=== PATIENT | male | born 1945 | race Caucasian/White ===

== ENCOUNTER 2016-09-15 09:30 | Outpatient (CLI) ==
[2016-05-14 14:57] VITALS: BMI 33.0
--- NOTE | 2016-09-15 10:49 | US ---
EXAM: Bilateral lower extremity venous Doppler History: Bilateral lower extremity swelling. Technique: Multiple sonographic images through the bilateral lower extremities were obtained. Color duplex Doppler was used to interrogate vascular flow. Findings: The bilateral anterior tibial veins were not seen. The rest of visualized bilateral venou s structures demonstrate spontaneous flow with normal compression and normal augmentation. 7 cm x 2 cm x 2 cm complex or complicated collection of fluid within the right popliteal fossa. Bilateral l ower extremity subcutaneous edema. Impression: 1. No sonographic evidence for deep venous thrombosis within the visualized veins. 2. Right Miranda's cyst. 3. Bilateral lower extremity subcutaneous edema.
== END 2016-09-15 09:31 | disposition home or self-care (01) ==
LOC: RAD 09:30
PROVIDERS: ATTEND Internal Medicine
DX: M79.89 Other specified soft tissue disorders (principal); M79.606 Pain in leg, unspecified

== ENCOUNTER 2019-03-06 07:10 | Outpatient (CLI) ==
[2016-05-14 14:57] VITALS: BMI 33.0
== END 2019-03-06 07:29 | disposition short-term general hospital (02) ==
LOC: AMBL 07:10
PROVIDERS: ATTEND Internal Medicine
DX: M54.9 Dorsalgia, unspecified (principal); R06.02 Shortness of breath; J40 Bronchitis, not specified as acute or chronic; Z98.890 Other specified postprocedural states

== ENCOUNTER 2019-03-09 15:32 | Outpatient (CLI) | payer OTHER ==
[2016-05-14 14:57] VITALS: BMI 33.0
== END 2019-03-09 15:33 | disposition home or self-care (01) ==
LOC: NONPT 15:32
PROVIDERS: ATTEND Internal Medicine
DX: N17.9 Acute kidney failure, unspecified (principal); E87.70 Fluid overload, unspecified; E78.5 Hyperlipidemia, unspecified; R78.81 Bacteremia
CPT/HCPCS: 80048

== ENCOUNTER 2019-03-12 12:12 | Outpatient (CLI) | payer OTHER ==
[2016-05-14 14:57] VITALS: BMI 33.0
== END 2019-03-12 12:13 | disposition home or self-care (01) ==
LOC: NONPT 12:12
PROVIDERS: ATTEND Internal Medicine
DX: N17.9 Acute kidney failure, unspecified (principal); R30.0 Dysuria
CPT/HCPCS: 81001

== ENCOUNTER 2019-03-15 13:38 | Outpatient (CLI) | payer OTHER ==
[2016-05-14 14:57] VITALS: BMI 33.0
== END 2019-03-15 13:39 | disposition home or self-care (01) ==
LOC: NONPT 13:38
PROVIDERS: ATTEND Internal Medicine
DX: N17.9 Acute kidney failure, unspecified (principal)
CPT/HCPCS: 80053; 85025

== ENCOUNTER 2024-08-04 16:20 | Observation (INO) ==
[2024-08-04 16:42] LABS: BASOPHILS # (AUTO) 0.1 K/uL (0-0.2); BASOPHILS % (AUTO) 0.7 % (0.0-3.0); EOSINOPHILS # (AUTO) 0.2 K/ul (0.0-0.7); EOSINOPHILS % (AUTO) 2.4 % (0.0-7.0); HEMATOCRIT 42.9 % (42.0-52.0); IMMATURE GRANULOCYTE % (AUTO) 0.2 % (0.0-5.0); LYMPHOCYTES # (AUTO) 1.7 K/uL (0.60-3.4); LYMPHOCYTES % (AUTO) 19.9 (10.0-50.0); MEAN CORPUSCULAR HEMOGLOBIN 29.5 pg (27.0-31.0); MEAN CORPUSCULAR HGB CONC 32.6 (31.8-35.4); MEAN CORPUSCULAR VOLUME 90.5 fl (80.0-94.0); MONOCYTES # (AUTO) 0.7 K/uL (0.4-2.0); MONOCYTES % (AUTO) 8.4 (0-10); NEUTROPHILS # (AUTO) 5.8 K/ul (2.0-6.9); NEUTROPHILS % (AUTO) 68.4 % (42.2-75.2); PLATELET COUNT 245 10^3/uL (140-440); RDW COEFFICIENT OF VARIATION 12.6 % (11.6-14.8); RED BLOOD COUNT 4.74 10^6/ul (4.70-6.10); WHITE BLOOD COUNT 8.46 K/ul (4.2-10.2)
[2024-08-04 16:53] LABS: ALBUMIN 4.56 g/dL (3.5-5.0); ALKALINE PHOSPHATASE 92.6 U/L (56-119); ASPARTATE AMINO TRANSFERASE 25.3 U/L (17-59); BILIRUBIN,TOTAL 1.01 mg/dL (0.2-1.3); BLOOD UREA NITROGEN 18.7 mg/dL (9-20); CALCIUM 9.27 mg/dL (8.4-10.2); CARBON DIOXIDE 25.2 mmol/L (22-30.0); CHLORIDE 102.5 mmol/L (98-107); CREATININE 1.25 mg/dL (0.60-1.10); GLUCOSE 177.8 mg/dL (74-106); LIPASE 61.5 U/L (23-300); POTASSIUM 4.21 mmol/L (3.5-5.1); SODIUM 135.5 mmol/L (134.5-145); TOTAL PROTEIN 7.75 g/dL (6.3-8.2)
[2024-08-04] MEDS: ZOFRAN SDV IVP STA (16:53)
[2024-08-04] MEDS: MORPHINE 2 MG/ML SYRINGE IVP ONE (16:54)
[2024-08-04] MEDS: MYLANTA XTRA STRENGTH 30ML CUP PO ONE (17:15)
[2024-08-04] MEDS: LIDOCAINE VISCOUS 2% 15 ML UD MUCOUSMEMB STA (17:15)
--- NOTE | 2024-08-04 17:16 | CT ---
EXAM: CT ABDOMEN AND PELVIS HISTORY: Right upper quadrant pain TECHNIQUE: CT abdomen and pelvis without intravenous contrast. Images were reconstructed using 3 mm section thickness. Reformations were prepared. COMPARISON: 05/02/2019 FINDINGS: Diagnostic limitations exist without including intravenous contrast enhanced images. Live r is unremarkable. There are one or two punctate gallstones within an otherwise unremarkable gallbla dder. No biliary dilatation or pancreatic pathology. Spleen and adrenal glands are normal. There i s mild bilateral perinephric fat stranding similar to that seen on the prior 2019 study. There is no nephrolithiasis, ureteral obstruction or hydronephrosis. There is mild to moderate atherosclerotic disease. Stomach is within normal limits. Normal appendix. Moderate sigmoid diverticulosis without convincing evidence of diverticulitis. Normal bowel gas pattern. There is a left-sided 15 mm appar ent urinary bladder diverticulum not seen previously. The bladder was otherwise unremarkable. No pr ostate enlargement. There is no ascites or free air. Small to moderate bilateral inguinal hernias w ithout hernia complication suggested. Postop changes of the ventral abdominal wall noted. The bones demonstrate moderate to severe degenerative changes of the spine. Lung bases reveal fibrotic change s. - - - - - IMPRESSION: 1. There are one or two punctate gallstones within an otherwise unremarkable gallbladder. No biliar y dilatation or pancreatic pathology. 2. There is mild bilateral perinephric fat stranding similar to that seen on the prior 2019 study. There is no nephrolithiasis, ureteral obstruction or hydronephrosis. 3. There is mild to moderate atherosclerotic disease. 4. Normal appendix. Moderate sigmoid diverticulosis. Normal bowel gas pattern. 5. 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 6. There is no ascites or free air. 7. Small to moderate bilateral inguinal hernias without hernia complication suggested. - - - - - All CT scans are performed using dose optimization techniques as appropriate to the performed exam an d include at least one of the following: Automated exposure control, adjustment of the mA and/or kV according t o size, and the use of iterative reconstruction technique.
[2024-08-04] MEDS: PROTONIX IVP ONE (17:37)
[2024-08-04] MEDS: TORADOL IVP STA (17:38)
[2024-08-04] MEDS: VISIPAQUE 320 MG/ML 100ML IVP ONE (19:07)
--- NOTE | 2024-08-04 19:20 | ED.PDOC ---
General ED Provider: Dr. DEIDRE COVARRUBIAS MD Chief Complaint: Chest Pain Stated Complaint: 79 years old male past medical history of hypertension, dyslipidemia coming to emergency room for right sided lower chest pain and right upper quadrant pain. Patient reports that the pain started when he woke up this morning has gotten progressively worse throughout the day pain is associated with burping. Patient feeling nauseous but no vomiting. Reports the pain is aggravated by taking a deep breath rating the pain as 20/10. He denies any shortness of breath, fever, diarrhea or constipation no changes in the urine. Time Seen by Provider: 08/04/24 16:25 Information Source: Patient Primary Care Provider: NURIA MON MD Nursing and Triage Documentation Reviewed and Agree: Yes What is Opioid Naive?: *Opioid Naive implies the patient is not already taking opioids or not chronically receiving opioids on a daily basis. *PRN dosing is not "usually" associated with tolerance. *Patients are at higher risk of over-sedation and aspiration. What is Opioid Tolerant?: *Opioid Tolerance implies less than the expected response to an opioid. *Acquired tolerance is defined by the patient taking 60mg of oral morphine daily (or equianalgesic dose of another opioid) for 1 week or more. *Often associated with chronic pain. *May take more than usual dose to achieve desired pain control. 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 - Torres's palsy (ICD-10) History of osteomyelitis post laminectomy Z87.39 - Personal history of other diseases of the musculoskeletal system and connective tissue (ICD-10) Family History Mother CHF (congestive heart failure) FATHER Heart attack Social History Smoking and tobacco status: Former smoker Tobacco: How many years used: 40 Alcohol intake: never Substance use type: does not use Special rosaura needs: No Agree to transfusion: Yes Adopted: No Caregiver/support person: No Foster care: No Household members: spouse Housing: house Marital status: D Lives independently: Yes Daycare: no daycare Number of children: 2 service: Yes senior living: No Current occupational status: retired History of recent travel: No Do you think of yourself as: straight/heterosexual Current gender identity: male Seatbelt use: always Drives intoxicated or rides with intoxicated driver's license examiner: No Water heater temperature set < 120 degrees: Yes Working smoke detector in home: Yes Fire extinguisher in home: No Carbon monoxide detector in home: No Surgical History History of colon resection Z90.49 - Acquired absence of other specified parts of digestive tract (ICD- 10) History of laminectomy l1l3 dr pollard Z98.890 - Other specified postprocedural states (ICD-10) Physical Exam Physical Exam Appearance: Reports Well-nourished and Obese Pain Distress: Moderate Respiratory: Reports Airway patent, Breath sounds clear and Breath sounds equal Cardiovascular: Reports RRR, Pulses normal and No murmur GI/: Reports Soft, No masses, Bowel sounds normal, No Organomegaly and Tender (RUQ, positive Bajwa's sign) Musculoskeletal: Reports Normal strength and ROM intact Skin: Reports Warm and Normal color Neurological: Reports Sensation intact and Motor intact Psychiatric: Reports Affect appropriate Interpretation EKG Interpretation EKG Interpretation By: ED Physician Time of EKG #1: 16:25 Rate: Normal Rhythm: Sinus Ectopy: None [place]: NL ST Segment: Normal Interpretation: prolonged NV interval, no sings of acute ischemia EKG Interpretation By: ED Physician Time of EKG #2: 17:26 Rate: Swapnil Rhythm: Sinus Ectopy: None [place]: NL ST Segment: Normal EKG Interpretation: sinus bradycardia, no sings of acute ischemia Course Course 08/04/24 16:30 08/04/24 16:30 Orders, Labs, Meds: Lab Review 08/04/24 08/04/24 08/04/24 16:30 16:35 17:30 WBC 8.46 RBC 4.74 Hgb 14.0 Hct 42.9 MCV 90.5 MCH 29.5 MCHC 32.6 RDW Coeff of Mehdi 12.6 Plt Count 245 Immature Gran % (Auto) 0.2 Neut % (Auto) 68.4 Lymph % (Auto) 19.9 [place] % (Auto) 8.4 Eos % (Auto) 2.4 Baso % (Auto) 0.7 Neut # (Auto) 5.8 Lymph # (Auto) 1.7 [place] # (Auto) 0.7 Eos # (Auto) 0.2 Baso # (Auto) 0.1 Immature Gran # (Auto) 0.0 Sodium 135.5 Potassium 4.21 Chloride 102.5 Carbon Dioxide 25.2 Anion Gap 12.01 BUN 18.7 Creatinine 1.25 H Estimated GFR (MDRD) 56.00 BUN/Creatinine Ratio 14.96 Glucose 177.8 H Lactic Acid 1.41 Calcium 9.27 Total Bilirubin 1.01 AST 25.3 ALT 21.0 Alkaline Phosphatase 92.6 Troponin I < 0.012 Total Protein 7.75 Albumin 4.56 Globulin 3.19 Albumin/Globulin Ratio 1.42 Lipase 61.5 D-Dimer 721.97 H Orders Category Date Time Status OBSERVATION [[facility] PAT[facility]BS[facility]] [facility] 20:34 Ordered (MONITORED BED) EKG-(ED ONLY) Stat CARDIO 08/04/24 16:30 Completed EKG-(ED ONLY) Stat CARDIO 08/04/24 17:32 Completed NPO REMINDER: IMAGING ONCE CARE 08/04/24 18:53 Completed TELEMETRY MONITORING TELE CARE 08/04/24 20:34 Ordered CBC W/ AUTO DIFF Stat LAB 08/04/24 16:30 Completed CMP [COMPREHENSIVE METABOLIC PANEL] Stat LAB 08/04/24 16:30 Completed D-DIMER Stat LAB 08/04/24 16:35 Completed LACTIC ACID Stat LAB 08/04/24 17:30 Completed LIPASE Stat LAB 08/04/24 16:30 Completed TROPONIN I Stat LAB 08/04/24 16:30 Completed TROPONIN I Stat LAB 08/04/24 20:28 Ordered URINALYSIS C & S IF INDICATED Stat LAB 08/04/24 17:25 Uncollected Iodixanol [Visipaque 320 mg/ml 100Ml] Meds 08/04/24 19:06 Discontinued 100 ml IVP ONCE ONE Ketorolac Tromethamine [Toradol] Meds 08/04/24 17:33 Discontinued 30 mg IVP ONCE STA Lidocaine HCl [Lidocaine Viscous 2% 15 ml Ud] Meds 08/04/24 17:09 Discontinued 15 ml MUCOUSMEMB ONCE STA Mag Hydrox/Aluminum Hyd/Simeth [Mylanta Xtra Strength Meds 08/04/24 17:09 Discontinued 30Ml Cup] 15 ml PO ONCE ONE Morphine Sulfate [Morphine 2 mg/ml Syringe] Meds 08/04/24 16:29 Discontinued 2 mg IVP ONCE ONE Ondansetron HCl/Pf [Zofran Sdv] Meds 08/04/24 16:49 Discontinued 4 mg IVP ONCE STA Pantoprazole Sodium [Protonix] Meds 08/04/24 17:27 Discontinued [address] ONCE ONE [address] ABDOMEN/PELVIS WO CONTRAST Stat RADS 08/04/24 16:30 Completed CTA CHEST PE PROTOCOL Stat RADS 08/04/24 18:53 Completed Medications Discontinued Medications Generic Name Dose Route Start Last Admin Trade Name Freq PRN Reason Stop Dose Admin Iodixanol 100 ml 08/04/24 19:06 08/04/24 19:07 Iodixanol 320 Mg/Ml 100ml IVP 08/04/24 19:07 100 ml ONCE ONE Administration Ketorolac Tromethamine 30 mg 08/04/24 17:33 08/04/24 17:38 Ketorolac Tromethamine 30 Mg/Ml Vial IVP 08/04/24 17:34 30 mg ONCE STA Administration Lidocaine HCl 15 ml 08/04/24 17:09 08/04/24 17:15 Lidocaine Viscous 15 Ml Cup MUCOUSMEMB 08/04/24 17:10 15 ml ONCE STA Administration Morphine Sulfate 2 mg 08/04/24 16:29 08/04/24 16:54 Morphine Sulfate 2 Mg/Ml Syringe IVP 08/04/24 16:30 2 mg ONCE ONE Administration Ondansetron HCl 4 mg 08/04/24 16:49 08/04/24 16:53 Ondansetron Hcl/Pf 4 Mg/2 Ml Sdv IVP 08/04/24 16:50 4 mg ONCE STA Administration Pantoprazole Sodium 40 mg 08/04/24 17:27 08/04/24 17:37 Pantoprazole Sodium 40 Mg Vial IVP 08/04/24 17:28 40 mg ONCE ONE Administration Vital Signs: Temp Pulse Resp BP Pulse Ox 08/04/24 16:26 97.8 F 78 20 172/85 H 97 Patient with right upper quadrant pain received morphine 2 mg and GI cocktail then Toradol 30 mg still his pain is uncontrolled CBC no leukocytosis hemoglobin is normal creatinine 1.25 lactic acid normal LFTs within normal limits lipase also normal D-dimer 721. CT scan of the abdomen and pelvis showed 2 gallstones otherwise unremarkable gallbladder no biliary dilation or pancreatic pathology as per radiology interpretation there is also mild bilateral perinephric fat stranding no kidney stones or obstruction or hydronephrosis. Due to right upper quadrant tenderness and positive Bajwa sign on physical exam I am not able to rule out acute cholecystitis CTA chest PE protocol did not show any signs of PE or pneumonia as per radiology interpretation. Patient will need right upper quadrant ultrasound to rule out acute cholecystitis. CT results came back negative for PE I called hospitalist on-call Edgar and she accepted the patient to be admitted under observation for ultrasound tomorrow. Discharge Plan Discharge Patient Disposition: PLACED OBSERVATION Discharge Problem: Biliary colic Prescriptions: No Action carvedilol 12.5 mg tablet 12.5 mg PO 2XD Qty: 180 1RF pravastatin 40 mg tablet 40 mg PO DAILY Qty: 90 1RF aspirin 81 MG tablet,delayed release (DR/EC) 81 mg PO DAILYWM ferrous sulfate 325 mg (65 mg iron) tablet 325 mg PO QDAY losartan-hydrochlorothiazide 100-25 mg tablet 1 tab PO QDAY Did you review [place] [employer] for ALL controlled substances?: Not Applicable ED Provider: DEIDRE COVARRUBIAS Condition: Good
--- NOTE | 2024-08-04 20:15 | CT ---
EXAM: CT ANGIOGRAPHY CHEST (PE PROTOCOL) HISTORY: Elevated D-dimer TECHNIQUE: CTA chest with intravenous contrast. PE protocol. Multiplanar images were provided with MIP images and 3-D reconstructions. COMPARISON: 04/04/2024 FINDINGS: No pulmonary arterial thromboembolism. There is moderate thoracic aortic atherosclerotic disease without aneurysm. Coronary artery calcifications are present. Heart size is borderline enl arged. No pericardial effusion. Mildly prominent mediastinal and hilar lymph nodes are nonspecific and similar to that previously seen. Lung bases again demonstrate interstitial thickening and mild c onsolidations especially on the left although less than previously seen. This could represent scarri ng and atelectasis. Cannot exclude mild pneumonia. There is a stable pleural based noncalcified nod ule in the posterior right lung base measuring 9 mm, axial image 104. A few calcified granulomas are also noted. There is no pneumothorax, vascular congestion for pleural fluid. There is diffuse osse ous sclerosis somewhat similar to that previously seen. Bridging osteophytic spurs of the spine are seen throughout. Incidental note of a tiny gallstone within an otherwise unremarkable gallbladder. - - - - - IMPRESSION: 1. No PE. 2. There is moderate thoracic aortic atherosclerotic disease without aneurysm. Coronary artery calc ifications are present. 3. Heart size is borderline enlarged. 4. Mildly prominent mediastinal and hilar lymph nodes are nonspecific and similar to that previously seen. 5. Lung bases again demonstrate interstitial thickening and mild consolidations especially on the le ft although less than previously seen. This could represent scarring and atelectasis. Cannot exclud e mild pneumonia. 6. There is a stable pleural based noncalcified nodule in the posterior right lung base measuring 9 mm, axial image 104. 7. There is diffuse osseous sclerosis somewhat similar to that previously seen. - - - - - All CT scans are performed using dose optimization techniques as appropriate to the performed exam an d include at least one of the following: Automated exposure control, adjustment of the mA and/or kV according t o size, and the use of iterative reconstruction technique.
[2024-08-04] MEDS ORDERED: TYLENOL PO PRN (20:51)
[2024-08-04] MEDS ORDERED: REGLAN IVP PRN (20:52)
[2024-08-04] MEDS ORDERED: ZOFRAN SDV IVP PRN (20:52)
[2024-08-04] MEDS ORDERED: TORADOL IVP PRN (20:52)
[2024-08-04 21:44] LABS: SARS COV-2 RNA RAPID NAAT NEGATIVE (NEGATIVE)
[2024-08-04 22:33] VITALS: BMI 33.3
[2024-08-05 02:37] LABS: BILIRUBIN,URINE Negative (NEGATIVE); CLARITY,URINE Clear (CLEAR); COLOR,URINE Dark (YELLOW); GLUCOSE, URINE (UA) Negative (NEGATIVE); KETONES,URINE Negative (NEGATIVE); LEUKOCYTE ESTERASE ,URINE Negative (NEGATIVE); NITRITE,URINE Positive (NEGATIVE); PROTEIN,URINE 1+ (NEGATIVE); URINE, BLOOD Trace-intact (NEGATIVE); UROBILINOGEN,URINE 0.2 (0.2)
[2024-08-05 02:45] LABS: BACTERIA,URINE 2+ (NOT PRESENT); RENAL EPITHELIAL CELLS,URINE 0-2 (NOT PRESENT)
[2024-08-05 02:46] LABS: MUCUS,URINE TRACE (NOT PRESENT)
[2024-08-05 05:22] LABS: BASOPHILS % (AUTO) 0.3 % (0.0-3.0); EOSINOPHILS % (AUTO) 0.1 % (0.0-7.0); HEMATOCRIT 39.8 % (42.0-52.0); HEMOGLOBIN 13.1 g/dl (14.0-18.0); IMMATURE GRANULOCYTE % (AUTO) 0.2 % (0.0-5.0); LYMPHOCYTES # (AUTO) 1.4 K/uL (0.60-3.4); LYMPHOCYTES % (AUTO) 14.1 (10.0-50.0); MEAN CORPUSCULAR HEMOGLOBIN 29.8 pg (27.0-31.0); MEAN CORPUSCULAR HGB CONC 32.9 (31.8-35.4); MEAN CORPUSCULAR VOLUME 90.5 fl (80.0-94.0); MONOCYTES # (AUTO) 0.9 K/uL (0.4-2.0); NEUTROPHILS # (AUTO) 7.3 K/ul (2.0-6.9); NEUTROPHILS % (AUTO) 76.3 % (42.2-75.2); PLATELET COUNT 221 10^3/uL (140-440); RDW COEFFICIENT OF VARIATION 12.6 % (11.6-14.8); WHITE BLOOD COUNT 9.62 K/ul (4.2-10.2)
[2024-08-05 05:34] LABS: ALANINE AMINOTRANSFERASE 18.3 U/L (0-50); ALBUMIN 4.02 g/dL (3.5-5.0); ALKALINE PHOSPHATASE 84.8 U/L (56-119); ASPARTATE AMINO TRANSFERASE 25.3 U/L (17-59); BILIRUBIN,TOTAL 0.91 mg/dL (0.2-1.3); BLOOD UREA NITROGEN 23.7 mg/dL (9-20); CALCIUM 9.25 mg/dL (8.4-10.2); CARBON DIOXIDE 25.2 mmol/L (22-30.0); CHLORIDE 103.7 mmol/L (98-107); CREATININE 1.26 mg/dL (0.60-1.10); GLUCOSE 133.7 mg/dL (74-106); POTASSIUM 4.01 mmol/L (3.5-5.1); SODIUM 136.6 mmol/L (134.5-145); TOTAL PROTEIN 7.06 g/dL (6.3-8.2)
[2024-08-05 11:25] VITALS: BP 144/71; PULSE 66; RESP 16; TEMP 97.1
--- NOTE | 2024-08-05 13:41 | US ---
EXAM: ULTRASOUND OF THE RIGHT UPPER QUADRANT (LIMITED ABDOMEN) HISTORY: Right upper quadrant pain. TECHNIQUE: Sonography of the right upper quadrant of the abdomen was performed. Color Doppler imagin g and spectral Doppler imaging of the portal vein was also performed. Images were obtained and store d in a permanent archive. COMPARISON: None. FINDINGS: Liver: Hepatomegaly. The liver measures 20 cm in length. Main portal vein: Normal hepatopedal flow. Gallbladder and bile ducts: Stones and/or sludge in the gallbladder neck. No wall thickening. Commo n bile duct measures 5 mm. No wall thickening or sonographic Bajwa's sign. Pancreas: Unremarkable. Right Kidney: 11.1 x 5.3 x 5.0 cm. No hydronephrosis. Normal echogenicity. No stone. No mass. Fluid: No ascites. Other: None. IMPRESSION: 1. Hepatomegaly. 2. Stones and sludge in the gallbladder neck.
--- NOTE | 2024-08-05 13:56 | PCM.SS ---
Provider [facility] Date Admission Date: 08/04/24 Discharge Date Discharge Date: 08/05/24 Primary Care Physician Primary Care Physician: NURIA ROBB MD Chief Complaint Reason For Visit: BILIARY COLIC History of Present Illness History of Present Illness: Admitted 08/04/24 20:43, this 79 year old /WHITE/M presented to the ER last night with complaints of RUQ pain. States that this started on Monday night and persisted. Had 2 episodes of watery diarrhea. No vomiting but does report nausea. Denies fever or other symptoms. Reports gallbladder is still intact. CT scan showing gallstones at this time. Labs at baseline. Admitting to med/surg observation for pain control and RUQ ultrasound to r/o need for surgery. 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 (ICD-10) History of osteomyelitis post laminectomy Z87.39 - Personal history of other diseases of the musculoskeletal system and connective tissue (ICD-10) Surgical History History of colon resection Z90.49 - Acquired absence of other specified parts of digestive tract (ICD- 10) History of laminectomy l1l3 dr pollard Z98.890 - Other specified postprocedural states (ICD-10) Family History Mother CHF (congestive heart failure) FATHER Heart attack Social History Smoking and tobacco status: Former smoker Tobacco: How many years used: 40 Alcohol intake: never Substance use type: does not use Special rosaura needs: No Agree to transfusion: Yes Adopted: No Caregiver/support person: No Foster care: No Household members: spouse Housing: house Marital status: D Lives independently: Yes Daycare: no daycare Number of children: 2 service: Yes MCFP: No Current occupational status: retired History of recent travel: No Do you think of yourself as: straight/heterosexual Current gender identity: male Seatbelt use: always Drives intoxicated or rides with intoxicated spike driver: No Water heater temperature set < 120 degrees: Yes Working smoke detector in home: Yes Fire extinguisher in home: No Carbon monoxide detector in home: No Medications Mecications: Medications at Discharge (Home Meds & RX) aspirin 81 mg tablet,delayed release 81 mg PO DAILYWM 11/19/13 ferrous sulfate 325 mg (65 mg iron) tablet 325 mg PO QDAY 12/01/22 losartan 100 mg-hydrochlorothiazide 25 mg tablet 1 tab PO QDAY 04/11/24 carvedilol 12.5 mg tablet 12.5 mg PO 2XD #180 tabs 05/30/24 pravastatin 40 mg tablet 40 mg PO DAILY #90 tabs 07/17/24 Allergies Allergies Allergy/AdvReac Type Severity Reaction Status Date / Time No Known Allergies Allergy Verified 08/04/24 16:33 Review of Systems Constitutional: Reports No symptoms Head: Reports Normocephalic Eyes: Reports No symptoms Ears: Reports No symptoms Nose: Reports No symptoms Mouth: Reports No symptoms Throat: Reports No symptoms Cardiovascular: Reports No symptoms Respiratory: Reports No symptoms Gastrointestinal: Reports Nausea, Diarrhea (x2) and Abdominal pain (RUQ) Genitourinary: Reports No Symptoms Musculoskeletal: Reports No symptoms Endocrine: Reports No symptoms Hematology: Reports No symptoms Immunology: Reports No symptoms Neurological: Reports No symptoms Psychiatric: Reports No symptoms Physical Examination Appearance: Positive No Apparent Distress and Alert and Oriented x3 Head: Positive Normocephalic Eyes: Positive Not Examined ENT: Positive Not Examined Neck: Positive Supple, Non-Tender and Nonsupple Heart: Positive RRR and No Murmurs Respiratory: Positive Breath Sounds Clear, Bilaterally, Breath Sounds Equal and Respirations Nonlabored GI/: Positive Soft, Nontender, Bowel sounds normal and No Distention Extremities: Positive Pedal Pulses Palpable Bilaterally Neurological: Positive Sensation Intact, Motor Intact, Reflexes Intact, Alert and Oriented Vital Signs (Last 4 Hours) Vital Signs Last 4 Hours: Vital Signs: Last 4 Hours 08/05/24 10:00 08/05/24 10:00 08/05/24 11:00 Temperature 97.1 F L Temperature Source Temporal Artery Scan Pulse Rate 66 Respiratory Rate 16 Blood Pressure 144/71 H Blood Pressure Mean 95 Blood Pressure Location Right Radial Artery O2 Sat by Pulse Oximetry 96 Oxygen Delivery Method Room Air Room Air Room Air Telemetry Strip Reading 08/05/24 12:00 08/05/24 13:00 08/05/24 13:00 Temperature Temperature Source Pulse Rate Respiratory Rate Blood Pressure Blood Pressure Mean Blood Pressure Location O2 Sat by Pulse Oximetry Oxygen Delivery Method Room Air Room Air Telemetry Strip Reading Patient refused Labs This Visit Labs This Visit: Labs This Visit 08/04/24 08/04/24 08/04/24 16:30 16:35 17:30 WBC 8.46 RBC 4.74 Hgb 14.0 Hct 42.9 MCV 90.5 MCH 29.5 MCHC 32.6 RDW Coeff of Mehdi 12.6 Plt Count 245 Immature Gran % (Auto) 0.2 Neut % (Auto) 68.4 Lymph % (Auto) 19.9 [place] % (Auto) 8.4 Eos % (Auto) 2.4 Baso % (Auto) 0.7 Neut # (Auto) 5.8 Lymph # (Auto) 1.7 [place] # (Auto) 0.7 Eos # (Auto) 0.2 Baso # (Auto) 0.1 Immature Gran # (Auto) 0.0 Sodium 135.5 Potassium 4.21 Chloride 102.5 Carbon Dioxide 25.2 Anion Gap 12.01 BUN 18.7 Creatinine 1.25 H Estimated GFR (MDRD) 56.00 BUN/Creatinine Ratio 14.96 Glucose 177.8 H Lactic Acid 1.41 Calcium 9.27 Total Bilirubin 1.01 AST 25.3 ALT 21.0 Alkaline Phosphatase 92.6 Troponin I < 0.012 Total Protein 7.75 Albumin 4.56 Globulin 3.19 Albumin/Globulin Ratio 1.42 Lipase 61.5 D-Dimer 721.97 H Urine Color Urine Clarity Urine pH Ur Specific [place] Urine Protein Urine Glucose (UA) Urine Ketones Urine Blood Urine Nitrite Urine Bilirubin Urine Urobilinogen Ur Leukocyte Esterase Urine Microscopic RBC Urine Microscopic WBC Ur Squamous Epith Cells Ur Renal Epithelial Cell Urine Bacteria Hyaline Casts Urine Mucus SARS CoV-2 RNA Rapid RAMY 08/04/24 08/04/24 08/05/24 20:38 21:06 02:22 WBC RBC Hgb Hct MCV MCH MCHC RDW Coeff of Mehdi Plt Count Immature Gran % (Auto) Neut % (Auto) Lymph % (Auto) [place] % (Auto) Eos % (Auto) Baso % (Auto) Neut # (Auto) Lymph # (Auto) [place] # (Auto) Eos # (Auto) Baso # (Auto) Immature Gran # (Auto) Sodium Potassium Chloride Carbon Dioxide Anion Gap BUN Creatinine Estimated GFR (MDRD) BUN/Creatinine Ratio Glucose Lactic Acid Calcium Total Bilirubin AST ALT Alkaline Phosphatase Troponin I < 0.012 Total Protein Albumin Globulin Albumin/Globulin Ratio Lipase D-Dimer Urine Color Dark Urine Clarity Clear Urine pH 5.0 Ur Specific [place] 1.015 Urine Protein 1+ H Urine Glucose (UA) Negative Urine Ketones Negative Urine Blood Trace-intact H Urine Nitrite Positive H Urine Bilirubin Negative Urine Urobilinogen 0.2 Ur Leukocyte Esterase Negative Urine Microscopic RBC 2-5 Urine Microscopic WBC 5-10 Ur Squamous Epith Cells 2-5 Ur Renal Epithelial Cell 0-2 Urine Bacteria 2+ Hyaline Casts 2-5 Urine Mucus Trace SARS CoV-2 RNA Rapid RAMY Negative 08/05/24 05:12 WBC 9.62 RBC 4.40 L Hgb 13.1 L Hct 39.8 L MCV 90.5 MCH 29.8 MCHC 32.9 RDW Coeff of Mehdi 12.6 Plt Count 221 Immature Gran % (Auto) 0.2 Neut % (Auto) 76.3 H Lymph % (Auto) 14.1 [place] % (Auto) 9.0 Eos % (Auto) 0.1 Baso % (Auto) 0.3 Neut # (Auto) 7.3 H Lymph # (Auto) 1.4 [place] # (Auto) 0.9 Eos # (Auto) 0.0 Baso # (Auto) 0.0 Immature Gran # (Auto) 0.0 Sodium 136.6 Potassium 4.01 Chloride 103.7 Carbon Dioxide 25.2 Anion Gap 11.71 BUN 23.7 H Creatinine 1.26 H Estimated GFR (MDRD) 55.00 BUN/Creatinine Ratio 18.80 Glucose 133.7 H Lactic Acid Calcium 9.25 Total Bilirubin 0.91 AST 25.3 ALT 18.3 Alkaline Phosphatase 84.8 Troponin I Total Protein 7.06 Albumin 4.02 Globulin 3.04 Albumin/Globulin Ratio 1.32 Lipase D-Dimer Urine Color Urine Clarity Urine pH Ur Specific [place] Urine Protein Urine Glucose (UA) Urine Ketones Urine Blood Urine Nitrite Urine Bilirubin Urine Urobilinogen Ur Leukocyte Esterase Urine Microscopic RBC Urine Microscopic WBC Ur Squamous Epith Cells Ur Renal Epithelial Cell Urine Bacteria Hyaline Casts Urine Mucus SARS CoV-2 RNA Rapid RAMY Imaging Imaging: EXAM: CT ABDOMEN AND PELVIS FINDINGS: Diagnostic limitations exist without including intravenous contrast enhanced images. Liver is unremarkable. There are one or two punctate gallstones within an otherwise unremarkable gallbladder. No biliary dilatation or pancreatic pathology. Spleen and adrenal glands are normal. There is mild bilateral perinephric fat stranding similar to that seen on the prior 2019 study. There is no nephrolithiasis, ureteral obstruction or hydronephrosis. There is mild to moderate atherosclerotic disease. Stomach is within normal limits. Normal appendix. Moderate sigmoid diverticulosis without convincing evidence of diverticulitis. Normal bowel gas pattern. 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 The bladder was otherwise unremarkable. No prostate enlargement. There is no ascites or free air. Small to moderate bilateral inguinal hernias without hernia complication suggested. Postop changes of the ventral abdominal wall noted. The bones demonstrate moderate to severe degenerative changes of the spine. Lung bases reveal fibrotic changes. - - - - - IMPRESSION: 1. There are one or two punctate gallstones within an otherwise unremarkable gallbladder. No biliary dilatation or pancreatic pathology. 2. There is mild bilateral perinephric fat stranding similar to that seen on the prior 2019 study. There is no nephrolithiasis, ureteral obstruction or hydronephrosis. 3. There is mild to moderate atherosclerotic disease. 4. Normal appendix. Moderate sigmoid diverticulosis. Normal bowel gas pattern. 5. 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 6. There is no ascites or free air. 7. Small to moderate bilateral inguinal hernias without hernia complication suggested. EXAM: ULTRASOUND OF THE RIGHT UPPER QUADRANT (LIMITED ABDOMEN) FINDINGS: Liver: Hepatomegaly. The liver measures 20 cm in length. Main portal vein: Normal hepatopedal flow. Gallbladder and bile ducts: Stones and/or sludge in the gallbladder neck. No wall thickening. Common bile duct measures 5 mm. No wall thickening or sonographic Bajwa's sign. Pancreas: Unremarkable. Right Kidney: 11.1 x 5.3 x 5.0 cm. No hydronephrosis. Normal echogenicity. No stone. No mass. Fluid: No ascites. Other: None. IMPRESSION: 1. Hepatomegaly. 2. Stones and sludge in the gallbladder neck. Review Review Statement: I have independently reviewed and interpreted the labs/EKGs/imaging that were ordered by the ER provider. I have reviewed all outside records that are available currently in our EMR including imaging/notes/labs from previous visits. Plan Reccomendations/Plan: 1. Biliary Colic - NPO at midnight, accuchecks Q4H while NPO, RUQ US in am completed and showed gallstones and sludge, referral to general surgery sent upon discharge Discussed results with patient. Resume low fat diet. Sent rx for pain medications and zofran for nausea. Of note, urinary bladder diverticulum noted on CT. Has urology appointment tomorrow. Disc and report sent with patient to discuss at appointment. Additional Planning: Case discussed with ED Physician, Dr. Rodriguez. DVT Prophylaxis: Ambulation Disposition: Admit to: Med/Surg Observation Discussed Plan of Care with Dr. Robb. If patient discharged with Left Ventricular Systolic Dysfunction: No Discharged with a beta gifty? [] If no, why not? [] Discharged with an alix/arb? [] If no, why not? [] Diagnosis: Gallstones Diet: Low fat Activity as tolerated Medications: Elizabeths - Payal Review With Patient Reviewed with Patient and Family: Patient and family have been counseled on condition and care plan and have no immediate questions. I have personally discussed and reviewed the patient's visit/current labs/imaging/decision making with Dr. Rickey Robb, my supervising attending. Total number of minutes spent with patient 85 min. More than 50% of the time spent with this patient was devoted to counseling and coordination of care. Time of Admission:08/04/24 20:43 Time of Discharge: 08/05/24 14:00 Discharge Plan Discharge Discharge Orders: Discharge Patient (ONCE); Ordered 08/05/24 Ordered By: HECTOR DAMON Activity Restrictions/Additional Instructions: Diagnosis: Gallstones Diet: Low fat Activity as tolerated Medications: Boy's - Marshall You have been referred to [facility] General Surgery. They will be in contact with you to initiate care. If you have any questions or need to speak with them, their contact number is [phone]. Instructions: Gallstones (GEN), Low Fat Diet (GEN) Patient Disposition: HOME SELF-CARE Prescriptions: New hydrocodone-acetaminophen 5-325 mg tablet 1 tab PO Q6H PRN (Reason: pain) Qty: 30 0RF ondansetron 4 mg tablet,disintegrating 4 mg PO Q6H PRN (Reason: nausea and vomiting) Qty: 20 0RF Continued carvedilol 12.5 mg tablet 12.5 mg PO 2XD Qty: 180 1RF pravastatin 40 mg tablet 40 mg PO DAILY Qty: 90 1RF aspirin 81 MG tablet,delayed release (DR/EC) 81 mg PO DAILYWM ferrous sulfate 325 mg (65 mg iron) tablet 325 mg PO QDAY losartan-hydrochlorothiazide 100-25 mg tablet 1 tab PO QDAY Did you review [place] IMPLANT COORDINATOR for ALL controlled substances?: No Discussed opioids are addictive and Narcan is available by prescription or from pharmacy.: No Condition: Good Referrals: NURIA ROBB MD [Primary Care Provider] - 08/12/24 1:40 pm
[2024-08-05] MEDS: NORCO 5-325 PO ONE (14:49)
== END 2024-08-05 15:00 | disposition home or self-care (01) ==
LOC: MEDSURG B 16:20 → ED 16:20 → MEDSURG B 22:15
PROVIDERS: ADMIT Hospitalist; ATTEND Nurse Practitioner Family
DX: K80.50 Calculus of bile duct without cholangitis or cholecystitis without obstruction; I10 Essential (primary) hypertension; Z51.81 Encounter for therapeutic drug level monitoring; Z79.899 Other long term (current) drug therapy; Z20.822 Contact with and (suspected) exposure to COVID-19; E78.5 Hyperlipidemia, unspecified